=== PATIENT | female | born 1935 | race Caucasian/White ===

== ENCOUNTER → 2022-08-11 10:31 | Outpatient (CLI) | payer OTHER, SELFPAY ==
[2022-08-11 11:43] LABS: Add Manual Diff / Slide Review NO; Basophils Absolute Auto 100 /uL (0-100); Basophils Percent Auto 0.9 % (0-2); Eosinophils Absolute Auto 200 /uL (0-450); Eosinophils Percent Auto 3.1 % (2-4); Hematocrit 40.2 % (36-46); Hemoglobin 13.8 g/dL (12.0-16.0); Lymphocytes Absolute Auto 1800 /uL (1100-4500); Lymphocytes Percent Auto 30.3 % (25-40); Mean Corpuscular HGB Conc 34.4 % (30-36); Mean Corpuscular Hemoglobin 29.5 PG (26-34); Mean Corpuscular Volume 85.8 fL (80-100); Monocytes Absolute Auto 400 /uL (0-900); Monocytes Percent Auto 6.5 % (3-14); Neutrophils Absolute Auto 3500 /uL (1500-7000); Neutrophils Percent Auto 59.2 % (50-75); Platelet Count 220 X10^3/uL (150-400); Red Blood Cell Count 4.68 X10^6/uL (4.0-5.2); Red Cell Distribution Width 13.2 % (11.6-14.8)
[2022-08-11 12:19] LABS: Alanine Aminotransferase 18 IU/L (<35); Albumin 3.9 g/dL (3.5-5.0); Albumin Globulin Ratio 1.2 (1.0-2.8); Alkaline Phosphatase 64 U/L (38-126); Aspartate Aminotransferase 24 IU/L (14-36); BUN Creatinine Ratio 21.1 (6-22); Bilirubin Total 0.3 mg/dL (0.2-1.3); Blood Urea Nitrogen 16 mg/dL (7-17); Calcium 9.1 mg/dL (8.4-10.2); Carbon Dioxide 31 mmol/L (22-32); Chloride 101 mmol/L (98-107); Cholesterol 163 mg/dL (140-199); Creatinine Urine Random 92.4 mg/dL; Estimated Glomerular Filt Rate > 60 mL/min (>60); Globulin 3.2 g/dL (1.7-4.1); Glucose 86 mg/dL (80-110); HDL Cholesterol 39 mg/dL (40-60); HEMOLYSIS < 15 (0-50); LDL Cholesterol Calculated 105 mg/dL (<100); Potassium 4.2 mmol/L (3.4-5.1); Sodium 140 mmol/L (137-145); Total Protein 7.1 g/dL (6.3-8.2); Triglycerides 94 mg/dL (35-150)
[2022-08-11 12:24] LABS: Microalbumi Creatinin Ratio Ur 6.4 ug/mg CR (<30); Microalbumin Urine Random 0.6 mg/dL (0-1.6)
[2022-08-11 12:47] LABS: TSH w/ Reflex to FT4 5.74 uIU/mL (0.47-4.68)
[2022-08-11 13:21] LABS: Free T4, Direct Thyroxine 0.83 ng/dL (0.78-2.19)
== END ==
PROVIDERS: PCP Family Medicine; Referring Provider Family Medicine; Visit Provider Family Medicine
DX: E78.5 Hyperlipidemia, unspecified (principal); E55.9 Vitamin D deficiency, unspecified; E03.9 Hypothyroidism, unspecified; F32.A Depression, unspecified; I10 Essential (primary) hypertension; N39.3 Stress incontinence (female) (male)
CPT/HCPCS: 36415; 80053; 80061; 82043; 82306; 82570; 84439; 84443; 85025

== ENCOUNTER → 2024-01-15 16:45 | Outpatient (CLI) | payer OTHER, SELFPAY ==
[2024-01-15 18:04] LABS: Add Manual Diff / Slide Review NO; Basophils Absolute Auto 0 /uL (0-100); Basophils Percent Auto 0.4 % (0-2); Eosinophils Absolute Auto 200 /uL (0-450); Eosinophils Percent Auto 2.6 % (2-4); Hematocrit 40.9 % (36-46); Hemoglobin 13.7 g/dL (12.0-16.0); Lymphocytes Absolute Auto 1900 /uL (1100-4500); Lymphocytes Percent Auto 31.5 % (25-40); Mean Corpuscular HGB Conc 33.5 % (30-36); Mean Corpuscular Hemoglobin 29.2 PG (26-34); Mean Corpuscular Volume 87.1 fL (80-100); Monocytes Absolute Auto 500 /uL (0-900); Monocytes Percent Auto 8.1 % (3-14); Neutrophils Absolute Auto 3600 /uL (1500-7000); Neutrophils Percent Auto 57.4 % (50-75); Platelet Count 202 X10^3/uL (150-400); Red Blood Cell Count 4.69 X10^6/uL (4.0-5.2); Red Cell Distribution Width 13.1 % (11.6-14.8); White Blood Cell Count 6.2 X10^3/uL (4.5-11.0)
[2024-01-15 18:29] LABS: Alanine Aminotransferase 17 IU/L (<35); Albumin 3.8 g/dL (3.5-5.0); Albumin Globulin Ratio 1.2 (1.0-2.8); Alkaline Phosphatase 64 U/L (38-126); Aspartate Aminotransferase 27 IU/L (14-36); BUN Creatinine Ratio 18.5 (6-22); Bilirubin Total 0.5 mg/dL (0.2-1.3); Blood Urea Nitrogen 15 mg/dL (7-17); Carbon Dioxide 27 mmol/L (22-32); Chloride 104 mmol/L (98-107); Cholesterol 165 mg/dL (140-199); Estimated Glomerular Filt Rate > 60 mL/min (>60); Globulin 3.2 g/dL (1.7-4.1); Glucose 86 mg/dL (80-110); HDL Cholesterol 34 mg/dL (40-60); HEMOLYSIS < 15 (0-50); LDL Cholesterol Calculated 111 mg/dL (<100); Potassium 3.9 mmol/L (3.4-5.1); Sodium 139 mmol/L (137-145); Triglycerides 98 mg/dL (35-150)
[2024-01-15 18:58] LABS: TSH w/ Reflex to FT4 5.55 uIU/mL (0.47-4.68)
[2024-01-15 19:16] LABS: Creatinine Urine Random 76.8 mg/dL
[2024-01-15 19:21] LABS: Microalbumin Urine Random < 0.6 mg/dL (0-1.6)
[2024-01-15 19:31] LABS: Free T4, Direct Thyroxine 1.02 ng/dL (0.78-2.19)
== END ==
PROVIDERS: PCP Family Medicine; Referring Provider Family Medicine; Visit Provider Family Medicine
DX: I10 Essential (primary) hypertension (principal); E03.9 Hypothyroidism, unspecified; E78.5 Hyperlipidemia, unspecified; F32.A Depression, unspecified; N39.3 Stress incontinence (female) (male)
CPT/HCPCS: 36415; 80053; 80061; 82043; 82570; 84439; 84443; 85025

== ENCOUNTER → 2024-02-28 09:00 | Outpatient (CLI) | payer OTHER, SELFPAY ==
--- NOTE | 2024-02-29 01:13 | DI.NM.S_ITS ---
DATE OF SERVICE: 02/28/2024 PROCEDURE: Pharmacological perfusion study. INDICATIONS: Shortness of breath with underlying hypertension, hyperlipidemia. RADIOPHARMACEUTICAL: 26.3 millicuries technetium-99m Myoview IV was injected at stress and 12.1 millicuries technetium-99m Myoview IV was injected at rest. CARDIAC STRESS: Patient initially attempted walking on treadmill and as per the report, she walked for about 5 minutes and 50 seconds and had significant shortness of breath. She was unable to keep up with treadmill. Achieved 7 METS of workload. Maximum heart rate reported to be 111 beats per minute. She was given IV Lexiscan then. Maximum heart rate 165/40. Maximum blood pressure 165/70 mmHg. Baseline rhythm was sinus bradycardia, heart rate in 50s with some repolarization changes. With Lexiscan, patient developed tightness around right and left jaw and continued to have significant dyspnea. No chest discomfort. There was about [address] depression in leads V4 to V6 and nonspecific ST depression in inferior leads and diffuse T-wave inversion. Patient's symptoms improved in recovery. EKG changes took more than 5 minutes to get into the baseline. RAW DATA: There is adequate myocardial uptake. Breast shadow seen. GATED STUDY: Resting LV ejection fraction 74% and stress LV ejection fraction 84%. Resting end-diastolic volume 76 mL. TID ratio 0.87, which is within normal limits. Lung/heart ratio 0.46, which is abnormal. MYOCARDIAL PERFUSION SCAN: Stress supine, resting supine and stress prone images were compared to each other. Stress supine and resting supine images revealed moderate size, mild to moderately decreased perfusion of anterior wall, which partially improved during stress prone images. Stress prone images remained to have mildly decreased perfusion of anterior wall. No significant reversible ischemia. CONCLUSION: I would call this study likely an abnormal myocardial perfusion study with persistent mildly decreased perfusion of anterior wall. There is an element of breast tissue attenuation artifact; however, occlusive LAD cannot be ruled out. No significant reversible ischemia. Anterior wall is moving well; hence, myocardial is viable. With Lexiscan, patient has right and left jaw discomfort. On surface EKG, at least [address] depression in leads V5 to V6 and diffuse T-wave inversion with prolonged recovery. Overall, preserved left ventricular function. Considering her age of 88 with underlying CAD risk factors, consider further cardiac workup to rule out coronary artery disease, like left heart catheterization versus CT coronary angiogram. Sangita Pace - ESTATE ADMINISTRATOR/afshan/ec doc#: [id number]/job#: [id number] dd: 02/28/2024 17:25:00 dt: 02/29/2024 00:43:00 DICTATING MD/COPIES TO: Dee Lopez MD; Amilcar Gamboa, ZAKIA MNE: ALEXIS;
== END ==
PROVIDERS: PCP Family Medicine; Referring Provider Family Medicine; Visit Provider Family Medicine
DX: I08.3 Combined rheumatic disorders of mitral, aortic and tricuspid valves (principal); R94.39 Abnormal result of other cardiovascular function study; I10 Essential (primary) hypertension; R06.09 Other forms of dyspnea; N39.3 Stress incontinence (female) (male); E78.5 Hyperlipidemia, unspecified; E03.9 Hypothyroidism, unspecified; I34.0 Nonrheumatic mitral (valve) insufficiency; I35.1 Nonrheumatic aortic (valve) insufficiency; I07.1 Rheumatic tricuspid insufficiency; I70.0 Atherosclerosis of aorta
CPT/HCPCS: 78452; 93017; 93306; A9502; J2785

== ENCOUNTER → 2024-02-28 09:26 | Outpatient (CLI) | payer OTHER, SELFPAY ==
--- NOTE | 2024-02-28 09:27 | DI.ECHO.S_ITS ---
[facility]---------+ [facility] +---------+ : : [address] [place] : : : : [id number] : : : : Phone: [phone]---------+ Echocardiogram Report + + :Name: ASHOK BENSON Study Date: 02/28/2024 Height: 63 in : :[facility] ReadingLocation: Weight: 140 lb : : Gender: Female BSA: 1.7 m2 : :: 1935 Age: 88 yrs BP: 175/90 mmHg: :Reason For Study: EXERTIONAL DYSPNEA : :Ordering Physician: ARVIND, : :ARON Performed By: Richard Jasso : :Referring: ARON SAMUELS : + + Interpretation Summary The left ventricle is normal in size and wall thickness. The ejection fraction is estimated to be 55-60%. No significant change in LVEF from the previous study. The right ventricle is normal in size and function. There is moderate mitral regurgitation. Previously mild to moderate MR. The mitral regurgitant jet is eccentrically directed. There is moderate aortic regurgitation. Compared to the prior echo study, there has been no change in the severity of aortic regurgitation. There is mild to moderate tricuspid regurgitation. Compared to the prior echo exam, there has been an increase in TR severity. The right ventricular systolic pressure is estimated to be at least 34 mmHg based on an estimated right atrial pressure of 3 mm Hg. There is aortic root sclerosis/calcification. Procedure: A two-dimensional transthoracic echocardiogram with color flow and Doppler was performed. The study quality was technically adequate. Comparison is made with the echocardiogram of 02/23/2020. The patient was in normal sinus rhythm during the exam. The heart rate ranged between 45-68 bpm during the study. Left Ventricle: The left ventricle is normal in size and wall thickness. There is no thrombus. The ejection fraction is estimated to be 55-60%. 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 MV E/A: 1.0 Med Peak E' Figueroa: 6.5 cm/sec E/E' med: 15.6. Right Ventricle: The right ventricle is normal in size and function. The right ventricular systolic function is normal. Atria: The left atrium is moderately dilated. The left atrium has mildly increased in size since the prior echo exam. Right atrial size is normal. The interatrial septum grossly appears intact with no obvious evidence for an atrial septal defect. Mitral Valve: There is moderate mitral annular calcification. The mitral valve leaflets are mildly calcified. The mitral valve chordae are thickened and/or calcified. There is no mitral valve stenosis. There is moderate mitral regurgitation. The mitral regurgitant jet is eccentrically directed. Aortic Valve: The aortic valve is grossly normal. The aortic valve is trileaflet. The aortic valve is mildly calcified. There is no aortic valve stenosis. There is moderate aortic regurgitation. Compared to the prior echo study, there has been no change in the severity of aortic regurgitation. Tricuspid Valve: The tricuspid valve is normal. There is no tricuspid stenosis. There is mild to moderate tricuspid regurgitation. The right ventricular systolic pressure is estimated to be at least 34 mmHg based on an estimated right atrial pressure of 3 mm Hg. Compared to the prior echo exam, there has been an increase in TR severity. Pulmonic Valve: The pulmonic valve is not well visualized. There is no pulmonic valvular stenosis. There is no pulmonic valvular regurgitation. Great Vessels: The aortic root is normal size. There is aortic root sclerosis/calcification. The dimensions of the ascending aorta are normal. The IVC is of normal diameter and collapses greater than 50% with a sniff. This suggests a low right atrial pressure of 3 mm Hg. Pericardium/ Pleura There is no pericardial effusion. There is no pleural effusion. MMode/2D Measurements & Calculations LVIDd: 4.7 cm LVOT diam: 1.8 cm LVIDs: 3.2 cm Ao root diam: 2.6 cm FS: 31.4 % asc Aorta Diam: 2.5 cm IVSd: 0.93 cm Ao Arch Diam (Prox Trans): 2.0 cm LVPWd: 0.89 cm LV martinez. diameter/BSA (cm/m^2): 2.8 LV sys. diameter/BSA (cm/m^2): 1.9 LA A2 area: 21.8 cm2 RA long axis: 4.6 cm LA A4 area: 18.9 cm2 RA area: 12.3 cm2 LA length (vol): 5.5 cm RA vol: 28.3 ml LA vol: 63.1 ml RA : 17.0 ml/m2 LA vol index: 38.0 ml/m2 IVC diam: 1.8 cm RVD1 (basal): 3.3 cm RVD2 (mid): 2.5 cm TAPSE: 2.5 cm Doppler Measurements & Calculations Ao V2 max: 160.4 cm/sec LVOT Max Figueroa: 100.0 cm/sec Ao V2 mean: 119.5 cm/sec LV V1 max P.0 mmHg Ao max P.3 mmHg LV V1 VTI: 29.4 cm Ao mean P.3 mmHg IMELDA(I,D): 1.6 cm2 Ao V2 VTI: 47.3 cm IMELDA(V,D): 1.6 cm2 sev ratio: 0.62 IMELDA indexed to BSA (cm^2/m^2): 0.94 AI P1/2t: 610.2 msec AI dec slope: 235.3 cm/sec2 MV E max figueroa: 102.0 cm/sec TR max figueroa: 282.0 cm/sec MV A max figueroa: 97.4 cm/sec TR max P.9 mmHg MV E/A: 1.0 PA V2 max: 105.3 cm/sec Med Peak E' Figueroa: 6.5 cm/sec PA V2 mean: 69.2 cm/sec E/E' med: 15.6 PA mean P.2 mmHg Lat Peak E' Figueroa: 5.8 cm/sec PA pr(Accel): 17.3 mmHg E/E' lat: 17.6 E/e' average: 16.6 MV dec time: 0.24 sec SV(LVOT): 73.9 ml Reading Physician:03:57 PM
== END ==
PROVIDERS: PCP Family Medicine; Referring Provider Family Medicine; Visit Provider Family Medicine
DX: R06.09 Other forms of dyspnea (principal); I34.0 Nonrheumatic mitral (valve) insufficiency; I35.1 Nonrheumatic aortic (valve) insufficiency; I07.1 Rheumatic tricuspid insufficiency; I70.0 Atherosclerosis of aorta
CPT/HCPCS: 93306